=== PATIENT | female | born 1970 | race Two or more races ===

== ENCOUNTER → 2017-07-06 | Outpatient (CLI) | payer MEDICAID | END | disposition home or self-care (01) | LOC: LAB 15:42 | PROVIDERS: ATTEND Urology | DX: N39.0 Urinary tract infection, site not specified (principal) | CPT/HCPCS: 87086 ==

== ENCOUNTER 2017-10-02 06:21 | Day surgery (SDC) | payer MEDICAID, OTHER ==
[2017-09-28 09:56] LABS: Basophils # (auto) 0 uL; Basophils % (auto) 0.6 % (0.0-2.0); Eosinophils # (auto) 0.1 uL; Hematocrit 40.7 % (36.0-46.0); Hemoglobin 13.5 g/dL (12.2-16.2); Lymphocytes # (auto) 1.9 uL; Lymphocytes % (auto) 29.9 % (10.0-50.0); Mean Corpuscular Hgb Conc. 33.2 g/dL (32.0-36.0); Mean Corpuscular Volume 93.4 fL (80.0-100.0); Monocytes # (auto) 0.5 uL; Monocytes % (auto) 8.1 % (0.0-12.0); Neutrophils # (auto) 3.9 uL; Neutrophils % (auto) 60.4 % (37.0-80.0); Nucleated Red Blood Cells % 0.1 %; Platelet Count (auto) 324 10^3/uL (140-450); Red Blood Cells 4.36 10^6/uL (4.0-5.20); Red Cell Distribution Width 13.7 % (11.8-14.3); White Blood Cell 6.4 10^3/uL (4.4-10.8)
[2017-09-28 10:14] LABS: Albumin 3.7 g/dL (3.4-5.0); BUN/Creatinine Ratio 28.8; Calcium 8.3 mg/dL (8.5-10.1); Potassium 3.5 mmol/L (3.5-5.1)
[2017-09-28 10:16] LABS: Bilirubin, Total 0.7 mg/dL (0.2-1.0); INR 0.93 (0.9-1.15); Partial Thromboplastin Time 26.7 sec (23.78-33.04); Total Protein 7.4 g/dL (6.4-8.2)
[2017-09-28 11:09] LABS: Urine Blood 1+ /uL (Negative); Urine Specific Gravity 1.028 (1.001-1.035)
[2017-09-28 11:10] LABS: Urine WBC 1 /hpf (0 - 5)
[2017-09-28 11:11] LABS: Urine Amorphous Sediment Many /hpf; Urine Bacteria FEW /hpf (None Seen); Urine Mucus FEW (None Seen)
[~2017-10-02] VITALS: Ht 172.7 cm; Wt 85.3 kg
[2017-10-02] MEDS ORDERED: CIPROFLOXACIN 400MG/200ML 200 ML IV ONE (07:19)
[2017-10-02] MEDS ORDERED: SUCCINYLCHOLINE CHLORIDE 20 MG/ML 10ML VIAL IV ONE (07:25)
[2017-10-02] MEDS ORDERED: LIDOCAINE 1% HCL (LOCAL ANESTH.) INJ 20ML MDV ONE (07:25)
[2017-10-02] MEDS ORDERED: ROCURONIUM 10MG/ML 10ML VIAL IV ONE (07:28)
[2017-10-02] MEDS ORDERED: MIDAZOLAM HCL 1MG/1ML-2 ML VIAL ONE (07:28)
[2017-10-02] MEDS ORDERED: PROPOFOL 10 MG/ML 20 ML IV ONE (07:28)
[2017-10-02] MEDS ORDERED: METOCLOPRAMIDE HCL 5MG/ml INJ 2ml VIAL ONE (07:31)
[2017-10-02] MEDS ORDERED: fentaNYL CITRATE 100 MCG/2 ML VL ONE (07:40)
[2017-10-02] MEDS ORDERED: MORPHINE SULFATE 4 MG/ML SYR/VIAL IV PRN (07:45)
[2017-10-02] MEDS ORDERED: ONDANSETRON HCL 4 MG/2 ML VIAL IV ONE (07:45)
[2017-10-02] MEDS ORDERED: NALOXONE HCL 0.4 MG/ML VIAL IV PRN (07:45)
[2017-10-02] MEDS ORDERED: GLYCOPYRROLATE 0.2 MG/ML 1ML VIAL ONE (07:58)
[2017-10-02] MEDS ORDERED: NEOSTIGMINE 1 MG/ML INJ (10mg/10ML VIAL) ONE (07:58)
[2017-10-02 08:58] VITALS: BP 112/73
== END 2017-10-02 09:14 | disposition home or self-care (01) ==
LOC: SUR 06:21
PROVIDERS: ATTEND Urology
DX: D30.3 Benign neoplasm of bladder (principal); N30.10 Interstitial cystitis (chronic) without hematuria; K21.9 Gastro-esophageal reflux disease without esophagitis; M19.90 Unspecified osteoarthritis, unspecified site; F32.9 Major depressive disorder, single episode, unspecified; Z90.49 Acquired absence of other specified parts of digestive tract; Z88.0 Allergy status to penicillin; Z82.49 Family history of ischemic heart disease and other diseases of the circulatory system; Z83.3 Family history of diabetes mellitus; Z84.89 Family history of other specified conditions; Z98.51 Tubal ligation status
CPT/HCPCS: 52204; J0744; J2765; J3010; J7030; 36415; 80053; 81001; 84702; 85025; 85610; 85730; J0330; J2001; J2250; J2704

== ENCOUNTER 2018-07-06 07:57 | Emergency (ER) | payer MEDICAID ==
[~2018-07-06] VITALS: Ht 172.7 cm; Wt 86.2 kg
[2018-07-06 08:06] VITALS: BP 135/86
== END 2018-07-06 09:56 | disposition home or self-care (01) ==
LOC: ER 08:02
DX: S86.911A Strain of unspecified muscle(s) and tendon(s) at lower leg level, right leg, initial encounter (principal); M71.21 Synovial cyst of popliteal space [Baker], right knee; Z88.0 Allergy status to penicillin; Z98.51 Tubal ligation status; X50.3XXA Overexertion from repetitive movements, initial encounter; Y93.01 Activity, walking, marching and hiking; Y99.8 Other external cause status; Y92.89 Other specified places as the place of occurrence of the external cause
CPT/HCPCS: 93971

== ENCOUNTER 2022-12-17 03:19 | Emergency (ER) | payer MEDICAID ==
[~2022-12-17] VITALS: Ht 172.7 cm; Wt 95.7 kg
[2022-12-17 03:35] VITALS: BP 151/77; PULSE 66; RESP 16; O2SAT 96
[2022-12-17 04:22] LABS: Basophils # (auto) 0 10 ^3/uL (0-0.2); Basophils % (auto) 0.6 % (0.0-2.0); Eosinophils # (auto) 0.1 10 ^3/uL (0-0.8); Hematocrit 43.6 % (36.0-46.0); Hemoglobin 14.5 g/dL (12.2-16.2); Lymphocytes # (auto) 2.5 10 ^3/uL (0.4-5.4); Lymphocytes % (auto) 29.2 % (10.0-50.0); Mean Corpuscular Hemoglobin 30.5 pg (28.0-32.0); Mean Corpuscular Hgb Conc. 33.3 g/dL (32.0-36.0); Mean Corpuscular Volume 91.5 fL (80.0-100.0); Monocytes # (auto) 0.5 10 ^3/uL (0-1.3); Monocytes % (auto) 6.3 % (0.0-12.0); Neutrophils # (auto) 5.3 10 ^3/uL (1.6-8.6); Neutrophils % (auto) 62.9 % (37.0-80.0); Nucleated Red Blood Cells % 0.1 %; Red Blood Cells 4.76 10^6/uL (4.0-5.20); Red Cell Distribution Width 13.7 % (11.8-14.3); White Blood Cell 8.4 10^3/uL (4.4-10.8)
[2022-12-17 04:39] LABS: Alanine Aminotransferase 27 U/L (7-40); Albumin 4.5 g/dL (3.2-4.8); Alkaline Phosphatase 80 U/L (46-116); Anion Gap 5 (5-15); Aspartate Aminotransferase 16 U/L (13-40); BUN/Creatinine Ratio 14.3 (10.0-20.0); Bilirubin, Total 0.7 mg/dL (0.2-1.0); Blood Urea Nitrogen 12 mg/dL (9-23); Calcium 9.2 mg/dL (8.7-10.4); Carbon Dioxide 28 mmol/L (20-30); Chloride 105 mmol/L (98-107); Glucose 110 mg/dL (74-106); Potassium 4.1 mmol/L (3.5-5.1); Sodium 138 mmol/L (136-145); Total Protein 7.4 g/dL (5.7-8.2)
[2022-12-17] MEDS ORDERED: KETOROLAC TROMETH 60MG/2ML VIAL IM ONE (07:00)
[2022-12-17] MEDS ORDERED: ONDANSETRON ODT 4 MG TAB PO ONE (07:00)
[2022-12-17] MEDS ORDERED: SUMA50TA2 PO (07:30)
[2022-12-17] MEDS ORDERED: ZOFR4T PO (07:30)
== END 2022-12-17 07:34 | disposition home or self-care (01) ==
LOC: ER 03:19
DX: G43.009 Migraine without aura, not intractable, without status migrainosus (principal); Z98.890 Other specified postprocedural states
CPT/HCPCS: 36415; 70450; 80053; 84484; 85025; 96372; 99285; J1885; Q0162

== ENCOUNTER 2024-02-14 06:57 | Day surgery (SDC) | payer MEDICAID ==
[2024-02-12 11:13] LABS: Urine Bacteria None Seen /hpf (None Seen)
[2024-02-12 11:24] LABS: Basophils # (auto) 0.1 10 ^3/uL (0-0.2); Basophils % (auto) 0.9 % (0.0-2.0); Eosinophils # (auto) 0.1 10 ^3/uL (0-0.8); Eosinophils % (auto) 0.9 % (0.0-7.0); Hemoglobin 15.2 g/dL (12.2-16.2); Lymphocytes # (auto) 2.4 10 ^3/uL (0.4-5.4); Lymphocytes % (auto) 35.6 % (10.0-50.0); Mean Corpuscular Hemoglobin 31.1 pg (28.0-32.0); Mean Corpuscular Hgb Conc. 33.7 g/dL (32.0-36.0); Mean Corpuscular Volume 92.2 fL (80.0-100.0); Monocytes # (auto) 0.4 10 ^3/uL (0-1.3); Monocytes % (auto) 6.6 % (0.0-12.0); Neutrophils # (auto) 3.8 10 ^3/uL (1.6-8.6); Nucleated Red Blood Cells % 0.2 %; Platelet Count (auto) 313 10^3/uL (140-450); Red Blood Cells 4.88 10^6/uL (4.0-5.20); Red Cell Distribution Width 13.8 % (11.8-14.3); White Blood Cell 6.7 10^3/uL (4.4-10.8)
[2024-02-12 11:32] LABS: Urine Blood Negative /uL (Negative); Urine Clarity Clear (Clear); Urine Color Colorless (Yellow); Urine Protein, UAD Negative (Negative); Urine Specific Gravity 1.009 (1.001-1.035); Urine Urobilinogen Normal (Negative); Urine WBC 6 /hpf (0 - 5); Urine pH 6.5 (5.0-9.0)
[2024-02-12 11:42] LABS: INR 0.97 (0.9-1.15); Partial Thromboplastin Time 26.5 SEC (24.5-34.5); Prothrombin Time 10.3 sec (9.3-11.8)
[2024-02-12 11:49] LABS: Alanine Aminotransferase 20 U/L (7-40); Alkaline Phosphatase 83 U/L (46-116); Anion Gap 7 (5-15); BUN/Creatinine Ratio 16.5 (10.0-20.0); Blood Urea Nitrogen 14 mg/dL (9-23); Calcium 10.2 mg/dL (8.7-10.4); Carbon Dioxide 28 mmol/L (20-31); Chloride 106 mmol/L (98-107); Glucose 99 mg/dL (74-106); Potassium 4.1 mmol/L (3.5-5.1); Sodium 141 mmol/L (136-145)
[2024-02-12 11:50] LABS: Albumin 4.6 g/dL (3.2-4.8); Aspartate Aminotransferase 17 U/L (13-40)
[2024-02-12 11:51] LABS: Bilirubin, Total 0.5 mg/dL (0.2-1.0); Total Protein 7.4 g/dL (5.7-8.2)
[~2024-02-14] VITALS: Ht 172.7 cm; Wt 86.6 kg
[~2024-02-14 06:57] MED LIST: OMEP20TA PO; UBRO100T2 PO
[2024-02-14] MEDS ORDERED: KETAMINE 50mg/ML 1ml syringe IV ONE (06:58)
[2024-02-14 07:10] VITALS: TEMP 97.1
[2024-02-14] MEDS ORDERED: DAKINS QUARTER STR 0.125% (NaHypochlorite) 473 ML TOPICAL SOL TOP ONE (07:15)
[2024-02-14] MEDS ORDERED: CLINDAMYCIN 600MG IV 50 ML IV ONE (07:34)
[2024-02-14] MEDS: GABAPENTIN 300 MG CAP PO ONE (07:39)
[2024-02-14] MEDS: CELECOXIB 100 MG CAP PO ONE (07:39)
[2024-02-14] MEDS: ACETAMINOPHEN IV 1000 MG/100ML (10MG/ML) IV ONE (07:39)
[2024-02-14] MEDS ORDERED: DexAMETHasone SOD PHOS 10MG/1ML VIAL INJ ONE (08:22)
[2024-02-14] MEDS ORDERED: PROPOFOL 10 MG/ML 20 ML IV ONE ×3 (08:22→09:01)
[2024-02-14] MEDS ORDERED: GLYCOPYRROLATE 0.2 MG/ML 1ML VIAL ONE (08:22)
[2024-02-14] MEDS ORDERED: LIDOCAINE 1% INJ PF 5ML AMP ONE (08:22)
[2024-02-14] MEDS ORDERED: ONDANSETRON HCL 4 MG/2 ML VIAL ONE (08:22)
[2024-02-14] MEDS ORDERED: KETOROLAC TROMETH 30 MG/ML 1ML VIAL ONE (08:22)
[2024-02-14] MEDS ORDERED: ePHEDrine SULFATE 50 MG/ML AMP ONE (08:42)
[2024-02-14] MEDS: BUPIVACAINE 0.5% P/F INJ 10 ML VIAL ONE (08:53)
[2024-02-14] MEDS: LIDOCAINE 1% HCL (LOCAL ANESTH.) INJ 20ML MDV ONE (08:58)
[2024-02-14 09:11] VITALS: PULSE 73; RESP 14; O2SAT 100
[2024-02-14] MEDS ORDERED: fentaNYL CITRATE 100 MCG/2 ML VL IV PRN (09:15)
[2024-02-14] MEDS ORDERED: hydrALAZINE HCL 20 MG/ML VL IV PRN (09:15)
[2024-02-14] MEDS ORDERED: ePHEDrine SULFATE 50 MG/ML AMP IV PRN (09:15)
[2024-02-14] MEDS ORDERED: NALOXONE HCL 0.4 MG/ML VIAL IV PRN (09:15)
[2024-02-14] MEDS ORDERED: oxyCODONE HCL 5MG TAB PO PRN (09:15)
[2024-02-14] MEDS ORDERED: FLUMAZENIL 0.1 MG/ML INJ 10ML MDV IV PRN (09:15)
[2024-02-14] MEDS ORDERED: ONDANSETRON HCL 4 MG/2 ML VIAL IV PRN (09:15)
[2024-02-14] MEDS ORDERED: HYDROmorphone HCL 2 MG/ML VL/or syr IV PRN (09:15)
--- NOTE | 2024-02-14 09:34 | POSTOP ---
Post-Operative Note Post-Operative Note Preop Diagnosis plantar fasciitis left foot Postop Diagnosis: same as above Operation performed plantar fasciectomy left foot partial Specimen none Anesthesia: Mac Anesthesiologist: Jas Khan CRNA Blood Loss(fluid mgmt) none Tourniquet Time 22 min left ankle at 250 mmHg Surgeon Bala Basurto D.P.M. Bilingual Branch Manager none Implant none Complications & Mgmt none Additional Remarks none Date 02/14/24 Time 09:30 BALA BASURTO DPM Feb 14, 2024 09:34
[2024-02-14 09:40] VITALS: BP 118/72; PULSE 52; RESP 18; O2SAT 100
--- NOTE | 2024-02-14 09:48 | DVHOP ---
DATE OF SURGERY: 02/14/2024 TIME: 9:36 a.m. PREOPERATIVE DIAGNOSIS: Plantar fasciitis, left foot. POSTOPERATIVE DIAGNOSIS: Plantar fasciitis, left foot. OPERATION PERFORMED: Plantar fasciectomy, left foot partial. SPECIMEN: None. ANESTHESIA: MAC local. ANESTHESIOLOGIST: Jas Khan CRNA BLOOD LOSS: None. TOURNIQUET TIME: 22 minutes left ankle at 250 mmHg. SURGEON: Bala Basurto DPM SENIOR CLINICAL RESEARCH SCIENTIST: None. IMPLANTS: None. COMPLICATIONS AND MANAGEMENT: None. ADDITIONAL REMARKS: None. INDICATIONS: The patient is a 53-year-old female who has longstanding pain to the left foot due to recalcitrant plantar fasciitis. She has exhausted all conservative therapy including offloading, NSAIDs, cortisone injections, modified shoes, orthotics, continues to have pain to the left foot. She has opted to have surgical intervention at this time. All risks and complications were explained to the patient in detail. She understands these risks and complications and would like to proceed with surgery at this time. No promises or guarantees were given. DESCRIPTION OF PROCEDURE: The patient was brought in the operating room, under mild sedation, placed on the operating table in supine position. Next, timeout was given and a preoperative block was administered to the left foot consisting of 17 mL of 1% lidocaine plain and 0.5 Marcaine plain in a 50:50 mix. Next, the left foot was prepped, draped, and sterilized in usual aseptic manner. A 4-inch Esmarch was used to exsanguinate the lower extremity and the tourniquet was inflated to 250 mmHg. Next, a plantar incision was made over the origin of the plantar fascia and deepened with hemostat and blunt and sharp dissection and rongeur was used to clear out the fat pad to visualize the plantar fascia. It was noted that there was a lateral rupture of the plantar fascia and once the plantar fascia was isolated, a 15 blade was used to create a plantar fasciectomy. Approximately 1.5 cm of fascia was removed in length and approximately 1 cm in width. This was passed from the operating table, placed on the back table, and thrown away as waste. Next, Vicryl was used to suture down the distal plantar fascia to the muscle belly and then copious amounts of saline solution were then used to irrigate the surgical field followed by closure using a 3-0 nylon in a simple interrupted horizontal mattress suture pattern, followed by Mastisol, 0.25-inch Steri-Strips non-cut, followed by Betadine-soaked Adaptic, followed by 4 x 4s, followed by Kerlix, followed by Coban. The patient tolerated the procedure well in apparent satisfactory condition and was transported to PACU and further care of the anesthesiologist. Bala CORREIA TID: [id number] RECEIPT: [id number]
== END 2024-02-14 10:00 | disposition home or self-care (01) ==
LOC: SUR 06:57
PROVIDERS: ATTEND Podiatrist
DX: M72.2 Plantar fascial fibromatosis (principal); G43.909 Migraine, unspecified, not intractable, without status migrainosus; K21.9 Gastro-esophageal reflux disease without esophagitis; E03.9 Hypothyroidism, unspecified; E66.3 Overweight; E78.5 Hyperlipidemia, unspecified; Z88.0 Allergy status to penicillin; Z90.710 Acquired absence of both cervix and uterus; Z90.49 Acquired absence of other specified parts of digestive tract; Z98.51 Tubal ligation status; Z83.3 Family history of diabetes mellitus; Z82.49 Family history of ischemic heart disease and other diseases of the circulatory system; Z79.899 Other long term (current) drug therapy
CPT/HCPCS: 28060; 36415; 80053; 81001; 85025; 85610; 85730; J1100; J1885; J2003; J2405; J2704; J3490; L3260; J0131